=== PATIENT | female | born 1975 | race Hispanic/Latino ===

== ENCOUNTER 2024-03-15 09:51 | Day surgery (SDC) | payer OTHER ==
[2024-03-14 12:03] VITALS: BMI 30.9
[2024-03-15] MEDS ORDERED: CEFAZOLIN 2 GM VIAL ONE (10:36)
[2024-03-15] MEDS ORDERED: Bupivacaine PF 0.5% 30 ML VIAL ONE (10:37)
[2024-03-15] MEDS ORDERED: PROPOFOL 20 ML ONE ×2 (11:11→11:19)
[2024-03-15] MEDS ORDERED: Lidocaine 1% PF 5 ML VIAL ONE (11:11)
[2024-03-15] MEDS ORDERED: Midazolam HCl 2 mg/2 ml Vial ONE (11:11)
[2024-03-15] MEDS ORDERED: fentaNYL 50 mcg/mL 1 mL Vial ONE (11:11)
[2024-03-15] MEDS ORDERED: Dexamethasone 20 MG/5 ML VIAL ONE (11:11)
[2024-03-15] MEDS ORDERED: Ondansetron PF 4 MG/2 ML Vial ONE (11:11)
[2024-03-15] MEDS ORDERED: HYDROcodone/Acetaminophen 5/325 mg Tablet ONE (14:23)
== END 2024-03-15 15:40 | disposition home or self-care (01) ==
LOC: CSHSDC 09:51
PROVIDERS: ATTEND Podiatrist Foot & Ankle Surgery
PROC: 0YP90YZ Removal of Other Device from Right Lower Extremity, Open Approach (ICD-10-PCS; principal; 2024-03-15)
DX: T84.84XA Pain due to internal orthopedic prosthetic devices, implants and grafts, initial encounter (principal); E11.9 Type 2 diabetes mellitus without complications; I10 Essential (primary) hypertension; E78.00 Pure hypercholesterolemia, unspecified; Z79.85 Long-term (current) use of injectable non-insulin antidiabetic drugs; Z79.899 Other long term (current) drug therapy; Y83.9 Surgical procedure, unspecified as the cause of abnormal reaction of the patient, or of later complication, without mention of misadventure at the time of the procedure
CPT/HCPCS: 36416; J0665; J1100; J2250; J2405; J2704; J3010

== ENCOUNTER 2025-05-30 10:27 | Outpatient (CLI) | payer MEDICAID | END 2025-05-30 10:28 | disposition home or self-care (01) | LOC: CSHMAMMO 10:27 | PROVIDERS: ATTEND Internal Medicine | DX: Z08 Encounter for follow-up examination after completed treatment for malignant neoplasm (principal); Z85.3 Personal history of malignant neoplasm of breast | CPT/HCPCS: 77066; G0279 ==

== ENCOUNTER → 2025-09-23 | Day surgery (SDC) | payer OTHER ==
[2025-09-20 13:10] VITALS: BMI 35.0
[~2025-09-23] MED LIST: CEFAZOLIN 2 GM VIAL ONE; Famotidine/PF 20 mg/2ml Vial ONE; Ketorolac Tromethamine 30 MG (1 mL) VIAL ONE; Lidocaine 2% PF 100 mg/5 ml Syringe ONE; Ondansetron PF 4 MG/2 ML Vial ONE; PROPOFOL 0 ML ONE; SUCCINYLCHOLINE/SOD CL,ISO/PF 200 MG/10 ML SYRINGE FS ONE
[2025-09-23 10:41] LABS: Anion Gap 15 mmol/L (10-20); BUN (Urea Nitrogen) 12 mg/dL (9.8-20.1); Calc. Creatinine Clearance 147 mL/min (70-130); Calcium 9.2 mg/dL (7.8-10.44); Carbon Dioxide 24 mmol/L (22-29); Chloride 97 mmol/L (98-107); Potassium 4.4 mmol/L (3.5-5.1); Sodium 132 mmol/L (136-145)
[2025-09-23 10:52] LABS: Glucose 402 mg/dL (70-105)
== END ==
LOC: CSHSDC 09:33
PROVIDERS: ATTEND Podiatrist Foot & Ankle Surgery
DX: M77.42 Metatarsalgia, left foot (principal); M25.872 Other specified joint disorders, left ankle and foot; M25.572 Pain in left ankle and joints of left foot; Z53.8 Procedure and treatment not carried out for other reasons; Z90.49 Acquired absence of other specified parts of digestive tract
CPT/HCPCS: 36415; 36416; 80048; J0665; J1100; J1308; J1815; J1885; J2003; J2250; J2405; J2704; J3010